=== PATIENT | female | born 1995 | race Caucasian/White ===

== ENCOUNTER 2024-04-14 06:33 | Emergency (ER) | payer BC, SELFPAY ==
[2024-04-14] VITALS (8 sets, daily range): BP systolic 120–146; BP diastolic 80–106; PULSE 82–136; RESP 16–28; TEMP 36.7–37.2; O2SAT 97–100; BMI 22.1
--- NOTE | 2024-04-14 07:22 | EDNOTE_ITS ---
ED Overdose RME/HPI General Chief Complaint: Overdose Stated Complaint: OVERDOSE Time Seen by Provider: 04/14/24 07:11 Arrival date/time: 04/14/24 06:33 RME / HPI RME / HPI Narrative: 28 year old female with history of depression, previously on Lexapro for 5 years and stopped 7 months ago, presents to the ED BIBA from home for overdose today. Patient states at 03:00 this morning she felt I couldn't handle it anymore and took 20 Doxylamine Succinate 25mg tablets with intent to kill herself. Reportedly has had suicidal ideations for 1 week without attempt prior to today. Sister at bedside states their father committed suicide around this time in 2008. While in the ED patient reports feeling she is having difficulty gathering her thoughts otherwise no other complaints. Denies fevers, chills, chest pain, abdominal pain, n/v/d, or urinary symptoms. Related Data Previous Rx's ?Medication ?Instructions ?Recorded ibuprofen 600 mg tablet 600 mg PO Q8H PRN pain #30 tabs 02/26/20 Allergies Allergy/AdvReac Type Severity Reaction Status Date / Time cefdinir Allergy Intermediate Hives Verified 04/14/24 07:08 Review of Systems Review of Systems Narrative Review of Systems: Constitutional: DENIES; Fevers Eyes: DENIES; Loss of vision Head/Ear/Nose: DENIES; Loss of hearing Throat: DENIES; Dysphagia Cardiovascular: DENIES; Chest pain, dyspnea or syncope Respiratory: DENIES; Shortness of breath Gastrointestinal: DENIES; Rectal bleeding or melena. Genitourinary: DENIES; Dysuria (painful or difficult urination) Musculoskeletal: DENIES; Arthralgia (pain in a joint),; Skin: DENIES; Rash Neurological: SEE HPI +has difficulty with thoughts. DENIES; Loss of function or movement Psychiatric: SEE HPI +depression, +suicidal ideation, +overdose Endocrinology: DENIES; Weight change Hematologic/Lymphatic: DENIES; Abnormal bruising Allergic/Immunologic: DENIES; Urticaria (hives) Past Medical History Past Medical History GASTROINTESTINAL: Positive Gastrointestinal Disorders and Obesity Family History FAMILY HISTORY: Positive Family Psychiatric Problems (MOTHER (DEPRESSION,ANXIETY)), Family Cancer (FATHER (MOUTH)) and Family Surgery (MOTHER,FATHER) Surgical History SURGICAL: Positive Tympanostomy Tube (PATO) Social History SMOKING STATUS: Current every day smoker ED Exam Narrative Physical exam: Physical Exam: General: The vital signs were reviewed. Patient has a sinus tach confirmed on EKG has some subtle confusion but talking answering questions fairly decently looks to her sister at the bedside the patient is non-toxic, in no apparent distress and appears healthy with a patent airway, no respiratory distress and has no apparent circulatory problems. Head & Scalp: Normocephalic, atraumatic. Face: Appears normal and is without lesions, deformity. Ears: Left external pinna appears normal. Right external pinna appears normal. Eyes: The sclera is anicteric. No obvious photophobia. The Left and Right Orbit/Lid/Conjunctiva appears normal without swelling, discoloration or injection. Nose: The nose is without deformity, discharge or tenderness; Throat: Appears normal. The mucous membranes are pink and moist without exudates, redness or mass seen. The tongue appears normal. Neck: The neck is supple and no apparent mass or adenopathy. Chest: The chest wall is normal in size and symmetry and has no chest wall tenderness or crepitus. The patient displays normal ventilator effort without retractions, accessory muscle use and has adequate air movement bilaterally with no wheezes and no rales. Cardiovascular: Tachycardia 130s on the monitor normal O2 sat and regular rhythm; No murmurs, rubs, or gallops; Gastrointestinal: The abdomen appears normal. No obvious hernias or mass. The abdomen is soft and benign, non-distended, with no pain, no guarding and no rebound tenderness. Bowel sounds are present and normal sounding. No CVA tenderness. Genitourinary: Back/Spine: Normal Spektor nontender Extremities/Musculoskeletal/lymphatic: The bilateral upper and lower extremities are warm. There is no evidence of arterial insufficiency. There is no evidence of venous insufficiency/edema. The patient spontaneously moves bilateral upper and lower extremities with no pain and no limitation of movement. There is no apparent, injury or trauma. Skin: The skin is warm, dry and intact. No rashes. No petechia. No purpura. No abnormal bruising. The color is appropriate with no cyanosis. Mental status/Psychiatric: Mental status is appropriately remorseful admits to being suicidal and had a tough week. . The patient has no apparent delusions, visual hallucinations, no apparent audible hallucinations. The patient has no apparent suicidal thoughts/ideation and no apparent homicidal thoughts/ideation. Neurological: The patient is awake, alert, interactive, cordial, cooperative and is oriented to name and situation. Has some subtle confusion and some difficult thoughts. The patient follows commands and answers historical question with no impairment. There is no visual disturbance apparent. The pupils are equal and reactive bilaterally with normal eye movements and no diplopia The bilateral upper and lower extremities have normal strength, normal range of motion and normal functioning. The gait, station and balance appear to be baseline with no acute change Course Quality Measures none Orders Category Date Time Status Aspiration precautions ONCE Care 04/14/24 09:28 Active Blood gas, venous NOW Care 04/14/24 10:35 Active IV [Insert IV] NOW Care 04/14/24 09:28 Active Seizure precautions NOW Care 04/14/24 09:[address] head/brain wo con Stat Exams 04/14/24 17:42 Taken EKG (ED Only) Stat Exams 04/14/24 14:48 Draft Acetaminophen Stat Lab 04/14/24 08:17 Completed Alcohol, Blood Medical Stat Lab 04/14/24 08:17 Completed CBC Stat Lab 04/14/24 08:17 Completed Comprehensive Metabolic Panel Stat Lab 04/14/24 08:17 Completed Drug Screen,Urine Stat Lab 04/14/24 08:16 Completed HCG Qualitative,Urine Stat Lab 04/14/24 08:16 Completed Salicylate Stat Lab 04/14/24 08:17 Completed Urinalysis Stat Lab 04/14/24 08:16 Completed Venous Blood Gas Stat Lab 04/14/24 10:48 Completed Dextrose 50% Syr [D50w Syringe Abboject] Med 04/14/24 10:30 Discontinued 25 ml IV X1 ONE LORazepam [Ativan Inj] Med 04/14/24 09:33 Discontinued 1 mg IVP X1 ONE LORazepam [Ativan Inj] Med 04/14/24 09:25 Discontinued 2 mg .ROUTE .STK-MED ONE LORazepam [Ativan Inj] Med 04/14/24 09:28 Discontinued 2 mg IVP X1 ONE Sodium Bicarb 8.4% 50ml Vial* Med 04/14/24 10:29 Discontinued 50 meq IV X1 ONE Sodium Chloride 0.9% 1000 ml [Ns] 1,000 ml Med 04/14/24 07:27 Discontinued IV 150 mls/hr Sodium Chloride 0.9% 500 ml [Ns] 500 ml Med 04/14/24 07:27 Discontinued IV 999 mls/hr Vital Signs Vital signs: Vital Signs Temperature 98.1 F 04/14/24 06:36 Pulse Rate 136 H 04/14/24 06:36 Respiratory Rate 19 04/14/24 06:36 Blood Pressure 143/83 H 04/14/24 06:36 Pulse Oximetry (%) 97 04/14/24 06:36 Oxygen Delivery Method Room Air 04/14/24 06:36 Pulse ox is 97% on room air which is adequate. Overdose MDM Narrative MDM Narrative:: Patient 28-year-old who admits to taking 20 pevz-gvy-ulqsfqn doxylamine Sleep Aid tablets from [employer] at approximately 03 100 this morning and presents with some confusion tachycardia and dry mouth. Patient admits to using marijuana but denies any other drugs and alcohol is also not being used. Medical workup for suicidal ideation and overdose is ordered and pending at 0730 hrs. At 0925 hours, I was called into the room. Patient actively seizing, ordered for 1mg of Ativan. Medical workup came back negative with a white count of 14.2 hemoglobin of 15.0 venous blood gas came back at 7.41 electrolytes are unremarkable and mild hypokalemia. Note the urine is grossly positive but is a nonclean-catch specimen and she has no acute urinary symptoms therefore I am not going to treat. Salicylates and acetaminophen levels were negative drug screen was positive only for marijuana. Poison control was called and felt that because the QRS interval was increased 1 amp of bicarb was recommended which was given. Patient had no was observed and vital signs normalized with a heart rate down to 880s follow-up EKG #2 reveals a QRS interval of 112 which is less than the original EKG which was 121 proving that the patient is clinically improved. Patient was seen by mental health was cleared and has a safety plan. Also dereje martino is evidently under a lot of stress going through divorce and issues with work and other parts of life Family and boyfriend are present and they understand the safety plan. Also at the time of plan discharge I realized a CT scan of the head which I thought was ordered was not therefore it is ordered in a delayed fashion. Most likely a seizure due to the ingestion of the histamine sae/ykfc-eaz-zefcxun sleep aid. As there is no past seizure. CT head came back and read by myself with no blood no obvious fracture parenchyma appears normal. Essentially normal CT formal read is pending but patient is good has no symptoms and will be discharged. Patient data External records reviewed:: [facility] previous records (I reviewed H&P on 02/26/2020) and EMS form Clinical information provided by:: patient, EMS and family (Sister- adds to hpi ) Social determinants that could affect healthcare access:: mental health Patient has the following chronic illnesses:: Depression How is presenting disease/condition affected by chronic disease/condition?: exacerbated by Evaluation data The following diagnostics were reviewed and interpreted by me:: EKG tracing(s) (Sinus tachycardia, rate 131, AK interval 145, QTc 410) Lab and/or radiology exams considered but not ordered:: None Interpretation Summary: As noted above Medications / Prescriptions Medications or Prescriptions considered but not ordered:: None Medication administrations:: Medication Administration History Discontinued Medications Dextrose (Dextrose 50%-Water Inj 50 Ml Syringe) 25 ml IV X1 ONE Stop: 04/14/24 10:31 Last Admin: 04/14/24 10:50 Dose: 25 ml Documented By: SHIRLEY Sodium Chloride (Ns) 1,000 mls @ 150 mls/hr IV .Q6H40M ONE Stop: 04/14/24 14:06 Last Infusion: 04/14/24 17:13 Dose: Infused Documented By: Admin: 04/14/24 09:41 Dose: 150 mls/hr Documented By: SHIRLEY Sodium Chloride (Ns) 500 mls @ 999 mls/hr IV .Q31M ONE Stop: 04/14/24 07:57 Last Infusion: 04/14/24 17:13 Dose: Infused Documented By: Admin: 04/14/24 09:40 Dose: 999 mls/hr Documented By: SHIRLEY Lorazepam (Lorazepam 2 Mg/Ml Vial) 2 mg IVP X1 ONE Stop: 04/14/24 09:29 Last Admin: 04/14/24 11:06 Dose: Not Given Documented By: SHIRLEY Non-Admin Reason: Discontinued Lorazepam (Lorazepam 2 Mg/Ml Vial) Confirm Administered Dose 2 mg .ROUTE .STK- MED ONE Stop: 04/14/24 09:26 Last Admin: 04/14/24 11:00 Dose: Not Given Documented By: SHIRLEY Non-Admin Reason: Duplicate Medication on eMAR Lorazepam (Lorazepam 2 Mg/Ml Vial) 1 mg IVP X1 ONE Stop: 04/14/24 09:34 Last Admin: 04/14/24 09:35 Dose: 1 mg Documented By: SP Sodium Bicarbonate (Sodium Bicarb Inj 8.4% 1 Meq/Ml Vial 50 Ml) 50 meq IV X1 ONE Stop: 04/14/24 10:30 Last Admin: 04/14/24 10:51 Dose: 50 meq Documented By: SHIRLEY See above Consultations Consultation(s) initiated? (list below): No Diagnosis Overdose Differential Diagnosis: suicide attempt by multiple drug overdose, drug overdose and other (Suicidal ideation) Most likely diagnosis given after review of the tests above:: Suicidal behavior Overdose New onset seizure Admission Indicated Admission indicated?: not indicated Admission Request Was there a request for admission?: No Disposition Plan Disposition Plan: Discharge Discharge Attestation Discharge Attestation: The patient and all family members were given an opportunity to ask questions and understood the discharge instructions. Discharge instructions specifically effects, indications for sooner follow up or return to the emergency department, and the expected course of current diagnosis. Patient condition: Stable Critical Care Time Critical Care Time Critical Care Time: Yes Total Critical Care Time (min.): 55 Attestation: The high probability of sudden, clinically significant deterioration in the patient's condition required the highest level of my preparedness to intervene urgently. The services I provided to this patient were to treat and/or prevent clinically significant deterioration. Services included the following: chart data review, reviewing nursing notes and/or old charts, documentation time, dairy feed sales consultant collaboration regarding findings and treatment options, medication orders and management, direct patient care, vital sign assessments and ordering, interpreting and reviewing diagnostic studies and lab tests. Aggregate critical care time includes only time during which I was engaged in work directly related to the patient's care, as described above, whether at bedside or elsewhere in the Emergency Department. It did not include time spent performing other reported procedures or the services of residents, students, nurses or physician assistants. Discharge Plan Plan Patient Disposition: HOME (Self Care) Prescriptions/Referrals Prescriptions/Med Rec: No Action ibuprofen 600 mg tablet 600 mg PO Q8H PRN (Reason: pain) Qty: 30 0RF Referrals: May Frye FNP-C [Primary Care Provider] - In 1 week Problem List Clinical Impression: Suicidal behavior, Overdose, New onset seizure, Drug overdose Patient/Caregiver Discharge Instructions Education Materials: ED Seizure New Onset Unknown ... Additional Instructions: Follow-up with mental health as we discussed. Expect a call back from them and/or contact your doctor as we also discussed. The overdose she had today evidently because a single seizure. We do not expect you to have another seizure but you cannot drive or operate any equipment and you must follow-up with your regular doctor in 2 days for reevaluation. No work for the next 3 days. Again no driving until cleared by your doctor Print Language: Faroese Stand Alone Forms: Ruthie Award Info., Patient Portal Info Letter
--- NOTE | 2024-04-14 07:24 | PC.CC ---
Pt Sheela Torres is a 28 yr olf female to ED for intentional overdose. Pt reports ingesting 20 sleeping tablets. At this time pt is pending medical clearance for crisis eval.
--- NOTE | 2024-04-14 07:48 | PC.NURSE ---
PATIENT AWAKE. HAVING DIFFICULTY UNDERSTANDING QUESTIONS AND GETTING WORDS TOGETHER TO ANSWER. APPEARS ANXIOUS. STATES HEARING VOICES TELLING HER SHE IS NO GOOD. STATED SHE IS EMOTIONALLY DISTRESSED. GOING THROUGH A DIVORCE, LOSS OF A PET. BOYFRIEND AT BEDSIDE.
[2024-04-14 08:34] LABS: Collection Type, Urine Clean Catch
[2024-04-14 08:37] LABS: Basophils % (Auto) 0 % (0-2.5); Eosinophils % (Auto) 0 % (0-10); Hematocrit 45.1 % (36.0-46.0); Immature Granulocytes % (Auto) 0 % (0-0); Immature Granulocytes Auto 0.05 Thou/mm3 (0.00-0.00); Lymphocytes # (Auto) 1.2 Thou/mm3 (1.0-4.8); Lymphocytes % (Auto) 8 % (10-50); Mean Corpuscular HGB Conc 33.3 g/dl (31.0-37.0); Mean Corpuscular Hemoglobin 29.9 pg (25.0-35.0); Mean Corpuscular Volume 90 fL (80-100); Monocytes # (Auto) 0.7 Thou/mm3 (0.0-0.8); Monocytes % (Auto) 5 % (0-12); Neutrophils # (Auto) 12.2 Thou/mm3 (1.8-7.7); Neutrophils % (Auto) 86 % (37-80); Nucleated Red Blood Cell % 0 /100 WBC (0); Platelet Count 262 Thou/mm3 (140-440); RDW Standard Deviation 43.2 fL (36.4-46.3); Red Blood Count 5.01 Miln/mm3 (4.00-5.20); White Blood Count 14.2 Thou/mm3 (3.6-11.0)
[2024-04-14 08:47] LABS: HCG Qualitative,Urine Negative
[2024-04-14 08:52] LABS: Amorphous Crystals,Urine Present (Absent); Bacteria,Urine Rare; Bilirubin,Urine Negative (Negative); Blood,Urine 3+ (Negative); Color,Urine Yellow (Lt Yel-Yel); Glucose, Urine 1+ (Negative); Hyaline Casts,Urine 1 /hpf (0-1); Ketones,Urine Negative (Negative); Leukocyte Esterase,Urine Positive (Negative); Nitrite,Urine Negative (Negative); Protein,Urine 3+ (Neg - Trace); RBC,Urine 89 /hpf (0-3); Specific Gravity,Urine 1.031 (1.001-1.035); Squamous Epithelial Cell,Urine 44 /hpf (0-5); WBC,Urine 32 /hpf (0-5)
[2024-04-14 08:57] LABS: Clarity,Urine Cloudy (Clear/Hazy)
[2024-04-14 09:12] LABS: Acetaminophen < 2.0 mcg/mL (10.0-20.0); Alanine Aminotransferase 15 U/L (10-49); Albumin, Serum 4.8 gm/dL (3.5-5.0); Albumin/Globulin Ratio 1.7 (1.2-2.2); Alcohol, Blood Medical < 3.0 mg/dL (0-10.0); Alkaline Phosphatase 69 U/L (46-116); Anion Gap 6 (7-16); Aspartate Amino Transferase 21 U/L (0-34); BUN/Creatinine Ratio 10 Ratio (12-20); Bilirubin,Total 0.9 mg/dL (0.3-1.2); Blood Urea Nitrogen 11 mg/dL (9-23); Calcium 9.8 mg/dL (8.3-10.6); Calcium (Corrected) 9.8 mg/dL (8.5-10.1); Carbon Dioxide 27.2 mMol/L (20.0-31.0); Chloride 106 mMol/L (98-107); Creatinine (Component) 1.1 mg/dL (0.6-1.3); Estimated Creatinine Clearance 76.8 mL/min (>60); Globulin 2.9 gm/dL (2.3-3.5); Glucose 93 mg/dL (74-106); Osmolality,Calculated 276 (275-295); Potassium 3.2 mMol/L (3.4-5.1); Salicylate < 3.0 mg/dL; Sodium 139 mMol/L (136-145); Total Protein 7.7 gm/dL (5.7-8.2); eGFR > 60 See Note
[2024-04-14] MEDS: LORazepam 2 MG/ML VIAL 1 MG IVP (09:35)
[2024-04-14 09:39] LABS: Amphetamine/Methamp Scrn,U Negative (Negative); Barbiturate Screen,Urine Negative (Negative); Benzodiazepines Screen,Urine Negative (Negative); Benzoylecgonine Screen, Ur Negative (Negative); Fentanyl Screen,Urine Negative (Negative); Opiate Screen,Urine Positive (Negative); THC Screen,Urine Positive (Negative)
[2024-04-14] MEDS: SODIUM CHLORIDE 0.9% 500 ML 500 ML 999 ML IV (09:40)
[2024-04-14] MEDS: SODIUM CHLORIDE 0.9% 1000 ML 1,000 ML 150 ML IV (09:41)
[2024-04-14] MEDS: DEXTROSE 50%-WATER INJ 50 ML SYRINGE 25 ML IV (10:50)
[2024-04-14] MEDS: SODIUM BICARB INJ 8.4% 1 mEq/ML VIAL 50 ML 50 MEQ IV (10:51)
[2024-04-14 10:54] LABS: Base Excess, Venous -2 (-3-3); O2 Saturation, Venous 76 % (96-97); PCO2, Venous 35 mmHg (36-56); PO2, Venous 38 mmHg (15-58); pH, Venous 7.41 (7.33-7.66)
--- NOTE | 2024-04-14 14:48 | EKG_ITS ---
[facility] Test Date: 2024-04-14 Pat Name: CRISTOPHER WHATLEY Department: Room: - Gender: Female Director Of Residential Services: : 1995 Requested By: Kt Sandoval Order Number: [id number] Reading MD: Kt Sandoval Measurements Intervals [place] Rate: 82 P: 76 RI: 153 QRS: 64 QRSD: 112 T: 64 QT: 414 QTc: 486 Interpretive Statements SINUS RHYTHM MODERATE INTRAVENTRICULAR CONDUCTION DELAY [110+ ms QRS DURATION] No previous ECG available for comparison /store/S0/[id number]/ecg/[id number].pdf
--- NOTE | 2024-04-14 15:22 | PC.NURSE ---
0977 PATIENT HAD A SEIZURE. PATIENT WAS ON HER PHONE. SITTER AND FAMILY AT BEDSIDE. PATIENT SUDDENLY BECAME RIGID AND FELL BACK IN THE GUERNEY. PATIENT BITE LOWER LIP IN THE PROCESS. DOCTOR CALLED IMMEDIATELY TO BEDSIDE. PATIENT REMAINED NONVERBAL AND STARING FORWARD FOR A FEW MINUTES. WHEN ABLE TO TALK WAS UNAWARE SHE HAD A SEIZURE. 1015 CALLED POISON CONTROL SPOKE WITH JEREMY. GAVE INFO ON PATIENT AND ANSWERED HER QUESTIONS. RECOMMENDED PASTIENT BE GIVEN 1-2 AMPS OF SODIUM BICARB AND TO REPEAT EKG 2-3 HRS LATER. TO WATCH PATIENT FOR 6-[address] LYNN INFORMED OF RECOMMENDATIONS. 2690 JEREMY CALLED ASKING ABOUT PATIENTS STATUS. INFORMED STABLE NO FURTHER SEIZURES WAS GIVEN 1 AMP OF SODIUM BICARB. ASKED IF EKG WAS REPEATED INFORMED NO. SHE AGAIN STRESSED BRITNI A NEW EKG BE DONE TO MAKE SURE HER QRS DURATION WAS LESS THAN 120MS DR Duval INFORMED AND EKG REPEATED.
--- NOTE | 2024-04-14 15:34 | PC.NURSE ---
FAMILY VOICED TO SITTER THAT PATIENT IS NOT QUITE HERSELF. STILL A LITTLE ABSENT MINDED AND SLOW TO RESPOND. WENT TO SEE PATIENT ASKED HER HOW SHE FELT. IF SHE WAS IN PAIN. ASKED HER WHAT AL FROM PRESCHOOL TEACHER TALKED ABOUT WITH HER. PATIENT ABLE TO RESPOND APPROPRIATELY TO ALL QUESTIONS.
--- NOTE | 2024-04-14 17:42 | XR_ITS ---
Examination: CT brain head without contrast. 2-D sagittal coronal reconstructions Date and time of exam:April 14, 2024 1821 hrs. Indications: New onset seizure today CTDI: vol (mGy):46.1 DLP: (mGycm):925 Technique: Multiple CT axial sections of the brain have been obtained, 5 mm slice thickness. Contrast has not been administered. 2-D sagittal, coronal reconstructions have been obtained Low dose protocols were performed. One or more of the following dose reduction techniques were used; automated exposure control, adjustment of the mA and/or KV according to patient size, use of iterative reconstruction technique. Findings: No significant ventricular enlargement. Intra-axial or extra-axial hemorrhage density is not seen. No mass effect or midline shift Basal cisterns are not remarkable. Fourth ventricle is midline. Cranial vault intact. Impression: Negative for acute hemorrhage, mass effect or midline shift Consider elective brain MRI follow-up, pre and postcontrast, seizure protocol
--- NOTE | 2024-04-14 17:58 | PC.CC ---
Pt Sheela Torres to ED following intentional OD on sleeping pills. Pt has been medically cleared at this time for crisis eval. ASW met with pt at bedside, introducing self and role in pt care. At time of encounter pts boyfriend Manan Ruiz [phone] is at bedside. Pt expressed desire for her boyfriend to remain at bedside for duration of eval. ASW explained reason for encounter and limitations of confidentiality. Pt expressed understanding, and is agreeable to meet with ASW at this time. Pt noted to be alert and oriented to person, place and situation. Pt made and kept direct eye contact for full encounter. Pt speaks in clear even tone. Pt presents appropriate. Pt able to respond to all assessment questions without issue. Pt states coming to ED following ingestion of 20 sleeping pills with intent of harming herself. Pt expressed knowing that taking pills in excess could lead to fatally harming herself. Pt reports a lot of life changes are occurring at this time, including the end of her marriage with pt having to relinquish prized possessions including her pet. 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 Pt states since September 2023 she has noted a decline in her mental health. Prior to September pt was engaged in online mental health services through [facility] [employer]. Pt reports she was prescribed Lexapro. Pt reports MH services stopped due to transition to new school district and having to wait for her health benefits. 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 Pt reports having coping skills, such as going to the gym, walking, writing in her journal, listening to music and meditation. Per pt since September she has not focused on her self and her own needs. Pt has been informed that case will be consulted and decision to safety plan or to detain pt on 5150 hold will be discussed. Pt reports understanding. [id number] to Sheela Dereck-case staffed: ASW to follow up with 1. Pts awareness of actions and consequences. 2. How does pt feel about her attempt being unsuccessful? 3. What has changed for pt from her attempt to this very moment? Pt states fully understanding that her actions could have had lethal consequences. Pt states she is very thankful her attempt failed and that her family supported her in seeking medical attention. Pt states this outcome has made her realize that she has not been focusing on herself and her needs, and the need to focus on her own needs again. At this time, safety plan will be established with the following: Fabiannjnathalie Ruiz (boyfriend) [phone] Jeane Brian (sister) [phone] Moe Fajardo (mom) [phone] Referral to be sent to [facility] Pt provided with Community Resource Guide for Crisis and Suicide Prevention Pt provided Warm Line information Family will monitor pt for next 48-72 hours, pt will not have access to any medications, sharps, firearms Pt to return to ED for any further needs. Pt will follow up with her private health coverage for list of contracted providers At this time pt and her boyfriend are in agreement with plan. Plan is for couple to go to pts boyfriend's cabin in [place].
== END 2024-04-14 19:12 | disposition home or self-care (01) ==
PROVIDERS: Emergency Provider Emergency Medicine; PCP Nurse Practitioner Family
DX: T43.222A Poisoning by selective serotonin reuptake inhibitors, intentional self-harm, initial encounter (principal); R56.9 Unspecified convulsions; R00.0 Tachycardia, unspecified
CPT/HCPCS: 36415; 70450; 80053; 80307; 80320; 80329; 81001; 81025; 82803; 85025; 93005; 96127; 96374; 99285; 99291; J2060; J7030; J7040; G0480